=== PATIENT | female | born 1940 | race Caucasian/White ===

== ENCOUNTER 2019-07-07 20:37 | Emergency (ER) | payer OTHER, BC ==
[2019-07-07] MEDS: ACETAMINOPHEN 500 MG TAB PO (21:17)
[2019-07-07] MEDS: LIDOCAINE 1% (MDV) 20 ML INJ SC (21:39)
[2019-07-07] MEDS: DIPHTH/TET/ACEL PERTUSS (ADULT) 0.5 ML VIAL IM* (22:40)
== END 2019-07-07 22:52 | disposition home or self-care (01) ==
LOC: FTE 20:37
DX: S01.81XA Laceration without foreign body of other part of head, initial encounter (principal); S69.91XA Unspecified injury of right wrist, hand and finger(s), initial encounter; W20.8XXA Other cause of strike by thrown, projected or falling object, initial encounter; Y92.9 Unspecified place or not applicable; Z23 Encounter for immunization
CPT/HCPCS: 12013; 70450; 73130-RT; 90471; 90715; 99284-25

== ENCOUNTER 2019-07-09 09:10 | Emergency (ER) | payer OTHER | END 2019-07-09 10:04 | disposition home or self-care (01) | LOC: FTE 09:10 | DX: R03.0 Elevated blood-pressure reading, without diagnosis of hypertension (principal); S09.90XD Unspecified injury of head, subsequent encounter; W22.8XXD Striking against or struck by other objects, subsequent encounter; Z48.00 Encounter for change or removal of nonsurgical wound dressing | CPT/HCPCS: 99281 ==